=== PATIENT | female | born 1975 | race Caucasian/White ===

== ENCOUNTER 2018-11-05 16:28 | Emergency (ER) | payer MEDICAID ==
[~2018-11-05] VITALS: Ht 175.3 cm; Wt 90.9 kg
[2018-11-05 17:11] LABS: APPEARANCE,URINE CLEAR (CLEAR); BILIRUBIN,URINE NEGATIVE (NEGATIVE); GLUCOSE, URINE (UA) NEGATIVE (NEGATIVE); KETONES,URINE NEGATIVE (NEGATIVE); LEUKOCYTE ESTERASE ,URINE NEGATIVE (NEGATIVE); NITRATE,URINE NEGATIVE (NEGATIVE); OCCULT BLOOD,URINE NEGATIVE (NEGATIVE); PROTEIN,URINE NEGATIVE (NEGATIVE)
[2018-11-05 17:19] LABS: BACTERIA,URINE None Seen /HPF (None Seen); RBC,URINE None Seen /HPF (0-2); SQUAMOUS EPITHELIAL CELL,UR Rare /LPF (None Seen); WBC,URINE None Seen /HPF (0-5)
[2018-11-05 18:50] VITALS: BP 129/87
== END 2018-11-05 19:30 | disposition home or self-care (01) ==
LOC: EMS 16:28
DX: R30.0 Dysuria (principal); M54.5 Low back pain

== ENCOUNTER 2021-09-24 13:08 | Emergency (ER) | payer MEDICAID ==
[~2021-09-24] VITALS: Ht 165.1 cm; Wt 90.9 kg
[2021-09-24] MEDS ORDERED: BACLOFEN 10 MG TABLET PO ONE (14:30)
[2021-09-24] MEDS ORDERED: KETOROLAC TROMETHAMINE 60 MG/2 ML VIAL IM ONE (14:30)
[2021-09-24 14:35] LABS: BASOPHILS % (AUTO) 0.3 % (0.0-2.0); EOSINOPHILS % (AUTO) 1.1 % (1.0-6.0); HEMATOCRIT 39.2 % (36-46); HEMOGLOBIN 13.2 g/dL (12.0-16.0); LYMPHOCYTES # (AUTO) 1.8 K/uL (1.0-4.8); LYMPHOCYTES % (AUTO) 23.3 % (22.0-44.0); MEAN CORPUSCULAR HEMOGLOBIN 29.2 pg (26.0-34.0); MEAN CORPUSCULAR HGB CONC 33.7 G/dL (31.0-37.0); MEAN CORPUSCULAR VOLUME 87 fL (80-100); MONOCYTES # (AUTO) 0.4 K/uL (0.1-1.0); MONOCYTES % (AUTO) 5.3 % (2.0-9.0); NEUTROPHILS # (AUTO) 5.5 K/uL (1.8-7.7); PLATELET COUNT (AUTO) 240 K/uL (150-450); RED BLOOD CELL COUNT(AUTO) 4.53 MIL/uL (4.00-5.20); RED CELL DISTRIBUTION WIDTH 13.7 % (11.5-14.5)
[2021-09-24 14:42] LABS: ANION GAP 8 mmol/L (8-16); CALCIUM, TOTAL 8.6 mg/dL (8.8-10.5); CARBON DIOXIDE 27 mmol/L (22-29); CHLORIDE 104 mmol/L (98-107); GLOMERULAR FILTR. RATE CALC > 60 mL/min (>60); GLUCOSE,RANDOM 107 mg/dL (70-110); POTASSIUM 4.1 mmol/L (3.5-5.1); SODIUM SERUM 139 mmol/L (136-145); UREA NITROGEN, BLOOD 8 mg/dL (7-18)
[2021-09-24 14:48] LABS: ALANINE AMINOTRANSFERASE 16 U/L (12-78); ALBUMIN 3.9 g/dL (3.4-5.0); ALKALINE PHOSPHATASE 64 U/L (46-116); ASPARTATE AMINOTRANSFERASE 16 U/L (15-37); BILIRUBIN,TOTAL 0.3 mg/dL (0.1-1.0); LIPASE 92 U/L (73-393); TOTAL PROTEIN, SERUM 7.5 g/dL (6.4-8.2)
[2021-09-24 15:00] LABS: APPEARANCE,URINE CLEAR (CLEAR); BILIRUBIN,URINE NEGATIVE (NEGATIVE); GLUCOSE, URINE (UA) NEGATIVE (NEGATIVE); KETONES,URINE NEGATIVE (NEGATIVE); LEUKOCYTE ESTERASE ,URINE LARGE (NEGATIVE); NITRATE,URINE NEGATIVE (NEGATIVE); OCCULT BLOOD,URINE NEGATIVE (NEGATIVE); PH,URINE 6.5 (5.0-8.0); PROTEIN,URINE 30-70 mg/dL (NEGATIVE); SPECIFIC GRAVITIY, URINE 1.032 (1.003-1.030)
[2021-09-24 15:15] LABS: BACTERIA,URINE Moderate /HPF (None Seen); RBC,URINE 0-2 /HPF (0-2); SQUAMOUS EPITHELIAL CELL,UR Moderate /LPF (None Seen)
[2021-09-24 15:28] VITALS: BP 103/65
[2021-09-24] MEDS ORDERED: CEPH-558 PO (16:23)
[2021-09-24] MEDS ORDERED: BACL10TA PO (16:23)
== END 2021-09-24 16:39 | disposition home or self-care (01) ==
LOC: EMS 13:08
DX: S39.012A Strain of muscle, fascia and tendon of lower back, initial encounter (principal); N39.0 Urinary tract infection, site not specified; X58.XXXA Exposure to other specified factors, initial encounter; Y93.89 Activity, other specified; Y92.89 Other specified places as the place of occurrence of the external cause; Y99.8 Other external cause status
CPT/HCPCS: 36415; 80053; 81001; 83690; 84703; 85025; 87086; 96372; 99283; J1885

== ENCOUNTER 2022-03-02 10:20 | Emergency (ER) | payer MEDICAID ==
[~2022-03-02] VITALS: Ht 162.6 cm; Wt 86.4 kg
[~2022-03-02 10:20] MED LIST: BACL10TA PO; CEPH-558 PO
[2022-03-02 10:27] VITALS: BP 110/66
[2022-03-02 11:05] LABS: COVID AG,FIA SOURCE NASOPHARYNGEAL
[2022-03-02 11:39] LABS: INFLUENZA TYPE A NEGATIVE FOR TYPE A (NEGATIVE); INFLUENZA TYPE B NEGATIVE FOR TYPE B (NEGATIVE)
[2022-03-02] MEDS ORDERED: ACET-66 PO (11:56)
[2022-03-02] MEDS ORDERED: GUAIFDM PO (11:56)
[2022-03-02] MEDS ORDERED: IBUP-1554 PO (11:56)
== END 2022-03-02 12:11 | disposition home or self-care (01) ==
LOC: EMS 10:22
DX: J06.9 Acute upper respiratory infection, unspecified (principal); Z20.822 Contact with and (suspected) exposure to COVID-19
CPT/HCPCS: 87804; 99283

== ENCOUNTER 2022-04-09 16:25 | Emergency (ER) | payer MEDICAID ==
[~2022-04-09] VITALS: Ht 162.6 cm; Wt 68.2 kg
[~2022-04-09 16:25] MED LIST changes: +ACET-66 PO; -BACL10TA PO; -CEPH-558 PO; +GUAIFDM PO; +IBUP-1554 PO
[2022-04-09 23:15] VITALS: BP 112/76
[2022-04-10] MEDS ORDERED: IBUP-1554 PO (15:10)
[2022-04-10] MEDS ORDERED: BACL10TA PO (15:10)
== END 2022-04-09 23:21 | disposition left against medical advice (07) ==
LOC: EMS 16:25
DX: R51.9 Headache, unspecified (principal); M79.601 Pain in right arm; Z53.21 Procedure and treatment not carried out due to patient leaving prior to being seen by health care provider

== ENCOUNTER 2022-04-10 12:55 | Emergency (ER) | payer MEDICAID ==
[~2022-04-10] VITALS: Ht 162.6 cm; Wt 81.8 kg
[2022-04-10 14:43] VITALS: BP 108/68
[2022-04-10] MEDS ORDERED: IBUP-1554 PO (15:10)
[2022-04-10] MEDS ORDERED: BACL10TA PO (15:10)
== END 2022-04-10 15:18 | disposition home or self-care (01) ==
LOC: EMS 13:04
DX: S13.4XXA Sprain of ligaments of cervical spine, initial encounter (principal); S00.03XA Contusion of scalp, initial encounter; S40.011A Contusion of right shoulder, initial encounter; S20.212A Contusion of left front wall of thorax, initial encounter; S70.11XA Contusion of right thigh, initial encounter; S80.12XA Contusion of left lower leg, initial encounter; Y04.2XXA Assault by strike against or bumped into by another person, initial encounter; Y93.89 Activity, other specified; Y92.89 Other specified places as the place of occurrence of the external cause; Y99.8 Other external cause status
CPT/HCPCS: 70450; 71045; 72040; 72070; 72100; 99284

== ENCOUNTER 2024-12-08 11:37 | Emergency (ER) | payer MEDICAID ==
[~2024-12-08] VITALS: Ht 160 cm; Wt 81.8 kg
[~2024-12-08 11:37] MED LIST changes: -ACET-66 PO; +BACL10TA PO; -GUAIFDM PO
[2024-12-08 11:43] VITALS: BP 106/70; PULSE 104; RESP 18; TEMP 98.4; O2SAT 97
== END 2024-12-08 15:16 | disposition home or self-care (01) ==
LOC: EMS 11:39
DX: G44.209 Tension-type headache, unspecified, not intractable (principal); Z79.899 Other long term (current) drug therapy
CPT/HCPCS: 70450; 99284